=== PATIENT | male | born 1955 | race Caucasian/White ===

== ENCOUNTER 2018-03-02 22:01 | Emergency (ER) | payer OTHER ==
[~2018-03-02] VITALS: Ht 172.7 cm; Wt 85.7 kg
[2018-03-02 22:30] VITALS: Ht 172.7 cm; Wt 85.7 kg
[2018-03-03 01:25] VITALS: BP 111/83
== END 2018-03-03 01:25 | disposition home or self-care (01) ==
LOC: ED 22:01
DX: M25.562 Pain in left knee (principal); I10 Essential (primary) hypertension; E78.00 Pure hypercholesterolemia, unspecified